=== PATIENT | female | born 1980 | race Caucasian/White ===

== ENCOUNTER 2017-02-18 13:00 | Inpatient (IN) | payer OTHER ==
--- NOTE | ~2017-02-18 | PN ---
Unit #: [id number] #: [id number] Patient: ROBERT HENRIQUEZ [id number] [facility] [address] [place] [address] [id number] MR#: [id number] NAME: ROBERT HENRIQUEZ. ROOM: P257 Age: 36 Sex: F Admission Date: 02/18/2017 : 1980 Attending Physician: Omar Jenkins M.D. Admitting Physician: Omar Jenkins M.D. Primary Care Physician: Primary Care Physician Melita SURESH PROGRESS NOTES DATE 02/21/2017 DISCUSSION Ms. Henriquez is a 36-year-old white female who was seen today and chart was reviewed and case was discussed with the staff. She has been anxious, withdrawn and rather seclusive to herself. Meanwhile, she has been cooperative with treatment recommendations and has been taking medications and tolerating them fairly well with no reported side effects. MENTAL STATUS EXAMINATION Young white female who was casually dressed with fair personal hygiene and appears to be in no acute distress or discomfort. She was awake and alert with intact orientation. Her mood was anxious with congruent affect. She denies any suicidal or homicidal ideation. Her insight and judgement remains slightly impaired. TREATMENT PLAN 1. Will continue on current medications and treatment protocol. Will monitor her response to medications and make further adjustments as needed. 2. Will continue to follow up. Dictated by... Omar Jenkins M.D. IAA/maci TD: 02/21/2017 22:59 JOB #: [id number] Unit #: [id number] #: [id number] Patient: ROBERT HENRIQUEZ PROGRESS NOTES Page 1 of 1 X Omar Jenkins MD PROGRESS NOTE
--- NOTE | ~2017-02-18 | PN ---
Unit #: [id number] #: [id number] Patient: ROBERT HENRIQUEZ [id number] [facility] [address] [place] [address] [id number] I MR#: [id number] NAME: ROBERT HENRIQUEZ. ROOM: P257 Age: 36 Sex: F Admission Date: 02/18/2017 : 1980 Attending Physician: Omar Jenkins M.D. Admitting Physician: Omar Jenkins M.D. Primary Care Physician: Primary Care Physician Melita PRESSLEY NOTES DATE 02/22/2017 DISCUSSION Ms. Henriquez is a 36-year-old white female who was seen today and chart was reviewed and case was discussed with the staff. She has been anxious, withdrawn and rather seclusive to herself. Meanwhile, she has been cooperative with treatment recommendations and has been taking medications and tolerating them fairly well with no reported side effects. MENTAL STATUS EXAMINATION Young white female who was casually dressed with fair personal hygiene and appears to be in no acute distress or discomfort. She was awake and alert on interaction with intact orientation. Her mood was anxious with congruent affect. She denies any suicidal or homicidal ideation. Her insight and judgement remains slightly impaired. TREATMENT PLAN 1. Will continue on current medications and treatment protocol. Will monitor her response to the medications and make further adjustments as needed. 2. Will continue to follow up. Dictated by... Omar Jenkins M.D. IAA/maci TD: 02/22/2017 22:31 JOB #: [id number] Unit #: [id number] #: [id number] Patient: ROBERT HENRIQUEZ DEMETRICE PROGRESS NOTES Page 1 of 1 X Omar Jenkins MD PROGRESS NOTE
--- NOTE | ~2017-02-18 | PN ---
Unit #: [id number] #: [id number] Patient: ROBERT OROZCO [id number] [facility] [address] [place] [address] [id number] I MR#: [id number] NAME: ROBERT OROZCO ROOM: P257 Age: 36 Sex: F Admission Date: 02/18/2017 : 1980 Attending Physician: Omar Jenkins M.D. Admitting Physician: Omar Jenkins M.D. Primary Care Physician: Primary Care Physician Melita SURESH PROGRESS NOTES DATE 02/20/2017 DISCUSSION Ms. Orozco is a 36-year-old white female with mood disorder who was seen today and chart was reviewed. Her case was discussed with the staff. She had a rough day yesterday with increasing anxiety, panic, agitation melt down and had to be given p.r.n. medications to cut down on her anxiety and agitation particularly initially vistaril was given but it is not affective and then p.r.n. Thorazine had been given. She reports having another panic attack this morning and was curled up in her bed and was exhibiting rather bizarre behavior. MENTAL STATUS EXAMINATION Young white female who was casually dressed with fair personal hygiene, appears to be in slight distress or discomfort. She was awake and alert with impaired attention and concentration. Her mood was anxious with congruent affect. She denies any suicidal or homicidal ideation. Her insight and judgement remains slightly impaired. TREATMENT PLAN 1. We will continue her on her current medications and treatment protocol. We will monitor her response to the medication and make further adjustments as needed. 2. We will continue to follow up. Dictated by... Delmis Cota/kate TD: 02/21/2017 01:51 JOB #: [id number] Unit #: [id number] #: [id number] Patient: ROBERT OROZCO DEMETRICE PROGRESS NOTES Page 1 of 1 X Omar Jenkins MD PROGRESS NOTE
--- NOTE | ~2017-02-18 | PA ---
Unit #: [id number] #: [id number] Patient: ROBERT HENRIQUEZ [id number] [place] [address] [id number] I MR#: [id number] NAME: ROBERT HENRIQUEZ. ROOM: P257 Age: 36 Sex: F Admission Date: 02/18/2017 : 1980 Date of Assessment: Attending Physician: Omar Jenkins M.D. Admitting Physician: Omar Jenkins M.D. PSYCHIATRIC ASSESSMENT DATE OF SERVICE 02/18/2017. IDENTIFYING DATA Ms. Henriquez is a 36-year-old white female, who is a resident of [place], [place] and was self-referred to the hospital on a voluntary basis and was accompanied by her sister. CHIEF COMPLAINT "I've been tired and agitated." HISTORY OF PRESENT ILLNESS Ms. Henriquez is a 36-year-old white female, who was brought into the hospital by her sister and the patient reports being tired and agitated and "noises are irritating me badly, I was just a couple of weeks ago due to my bipolar and manic depression and have been having feeling that people are going to come and get me, I do see things that are grieving me signs and sometime they are scaring me. I'm having a hard time making assumptions about things that are not really happening, I have been feeling this way for about 4 to 6 months, went to [facility], had the police come and get me instead of staying and they picked me up and took me to [facility], I did not feel safe there. Yesterday, I said if my family was going to be home, then I would rather go to sleep and just be gone and I used to take medication a year ago and I used to do everything right, and now I don't." The patient became very upset and tearful and stated "I was started to take Depakote a year ago and then started Abilify, trazodone from [facility] and I want to just say that I want to get my medicine and just go and has been about 3 weeks since I slept a lot and I am only sleeping about 1 hour at a time and not doing drugs and alcohol also last year. Slept with my sister Araceli's boyfriend and has been vaginal relationship just found out recently, I thought that she was sleeping with mine, so I slept with hers; however, she would forgive me." The patient's sister stated that "she is staying in a house for the past 3 weeks due to being too scared to be home alone and she is having assumptions that are not really happening and she is misperceiving situation about people and hearing things that are happening, that are not to be happening and she has been paranoid. As such, the patient was seen to be acutely psychotic with paranoia and delusional behavior and was seen to be danger to self and others and recommendation for inpatient level of care for safety and stabilization was made and the patient was transferred to us. Unit #: [id number] #: [id number] Patient: ROBERT HENRIQUEZ SUBSTANCE ABUSE HISTORY The patient reports history of alcohol, cannabis, acid, opioids, methamphetamine, and benzodiazepine abuse in the past, but she reports that she has not done any drugs in months to years. PAST PSYCHIATRIC HISTORY The patient has had history of inpatient psychiatric hospitalization in [facility] and has had outpatient treatment as well, however, review of the medical records indicate currently she is on Depakote and Abilify and trazodone, but does not feel the medications are effectively controlling her symptoms. PAST MEDICAL HISTORY The patient's medical history is significant for degenerative disk disease. ALLERGIES No known medication allergies. PERSONAL AND SOCIAL HISTORY A 36-year-old white female, who reports that she is single and and has been staying with her sister and is unemployed and reports having poor social support system. MENTAL STATUS EXAMINATION Young white female, who was casually dressed with fair personal hygiene, appears to be in no acute distress or discomfort. She was awake and alert on interaction with intact orientation to time, place, and person. Her mood was anxious and depressed with a congruent affect. Her speech was slow and restricted in content. Her thought processes were disorganized with some looseness of associations and flight of ideas. Her insight and judgment remain significantly impaired. DIAGNOSTIC IMPRESSION Psychiatric: Schizoaffective disorder, bipolar type, most recent episode depressed, recurrent, moderate, with psychosis. Medical: Degenerative disk disease. Stressors: Moderate psychosocial stressors. TREATMENT PLAN 1. The patient has presented with a history of mood disorder, and has been decompensating and will need inpatient hospitalization for safety and stabilization. We will start her back on her home medications. We will adjust the medications and monitor response. 2. Supportive therapy was provided to the patient. 3. Safe, structured, and nourishing environment will be provided. ESTIMATED LENGTH OF STAY 5 to 7 days. ABILITY TO HELP SELF Limited. WILLINGNESS TO HELP SELF The patient appears to be willing to help self. STRENGTHS 1. Communicative. 2. Cooperative. Unit #: [id number] #: [id number] Patient: ROEBRT HENRIQUEZ PROBLEMS 1. Chronic dysphoric symptoms. 2. Poor social support system. DISCHARGE CRITERIA This will be contingent upon the patient's ability to show resolution of her depression and anxiety as well as her ability to stay safe to herself, particularly after discharge from the hospital. Dictated by... Delmis Cota/omkar TD: 02/20/2017 01:27 JOB #: [id number] PSYCHIATRIC ASSESSMENT Page 1 of 1 X Omar Jenkins MD X PSYCHIATRIC ASSESSMENT
--- NOTE | ~2017-02-18 | DS ---
Unit #: [id number] #: [id number] Patient: ROBERT OROZCO [id number] [facility] [address] [place] [address] [id number] I MR#: [id number] NAME: ROBERT OROZCO ROOM: P257 Age: 36 Sex: F Admission Date: 02/18/2017 : 1980 Discharge Date: 02/23/2017 Attending Physician: Omar Jenkins M.D. Primary Care Physician: Primary Care Physician No DISCHARGE SUMMARY IDENTIFYING DATA Ms. Hutchins is a 36-year-old white female who is a resident of [place] and was self-referred to the hospital on a voluntary basis. DISCHARGE DIAGNOSES Psychiatric: Opioid dependence. Medical: Degenerative disk disease. Stressors: Moderate psychosocial stressors. HISTORY OF PRESENT ILLNESS Please see initial psychiatric evaluation for details. PAST PSYCHIATRIC HISTORY Please see initial psychiatric evaluation for details. PAST MEDICAL HISTORY Please see initial psychiatric evaluation for details. HOSPITAL COURSE The [facility] and was oriented to the hospital environment. Routine p.r.n. medications were initiated, and she was started back on her home medications and was seen to be anxious, withdrawn, and rather seclusive to herself with persistent psychosis and therefore Depakote was maintained and Seroquel and Remeron were initiated and she was having some increasing anxiety and bizarre behavior and threw herself on the floor and would be crying and exhibiting attention seeking and bizarre behavior and acute psychosis. Thorazine had to be given to cut down on such behavior. Later, Seroquel was titrated to 50 mg in the morning and in the afternoon and 200 mg at bedtime and with that adjustment, the patient was able to calm down and was wanting to go home and was denying any suicidal ideations, intent, or plan and as such, it was decided that she will be discharged home and will continue treatment on an outpatient basis. DISCHARGE MEDICATIONS Depakote 500 mg b.i.d. for bipolar, Remeron 15 mg at bedtime for depression, and Seroquel 50 mg in the morning and afternoon and 200 mg at bedtime. DISCHARGE CONDITION Stable. PROGNOSIS Fair. Unit #: [id number] #: [id number] Patient: ROBERT OROZCO Dictated by... Delmsi Cota/omkar TD: 02/24/2017 22:06 JOB #: [id number] DISCHARGE SUMMARY Page 1 of 1 X Omar Jenkins MD X DISCHARGE SUMMARY
--- NOTE | ~2017-02-18 | PN ---
Unit #: [id number] #: [id number] Patient: ROBERT OROZCO [id number] [facility] [address] [place] [address] [id number] I MR#: [id number] NAME: ROBERT OROZCO. ROOM: P257 Age: 36 Sex: F Admission Date: 02/18/2017 : 1980 Attending Physician: Omar Jenkins M.D. Admitting Physician: Omar Jenkins M.D. Primary Care Physician: Primary Care Physician Melita SURESH PROGRESS NOTES DATE 02/19/2017 DISCUSSION Ms. Orozco is a 36-year-old white female who was seen today and chart was reviewed and case was discussed with the staff. She has been anxious, withdrawn and rather seclusive to herself. Meanwhile, she has been complaining of persistent depression and anxiety. She has been taking medications and tolerating them fairly well with no reported side effects. MENTAL STATUS EXAMINATION Young white female who was casually dressed with fair personal hygiene, appears to be in no acute distress or discomfort. She was awake and alert on interaction with intact orientation. Her mood was anxious with congruent affect. Her speech was slow and goal-directed. She denies any suicidal or homicidal ideations. Her insight and judgement remains slightly impaired. TREATMENT PLAN 1. We will continue her on her current medications and treatment protocol. We will monitor her response to the medication and make further adjustments as needed. 2. We will continue to follow up. Dictated by... Delmis Ctoa/kate TD: 02/20/2017 04:00 JOB #: [id number] Unit #: [id number] #: [id number] Patient: ROBERT OROZCO DEMETRICE PROGRESS NOTES Page 1 of 1 X Omar Jenkins MD PROGRESS NOTE
--- NOTE | ~2017-02-18 | HP ---
Unit #: [id number] #: [id number] Patient: ROBERT OROZCO [id number] [place] [address] [id number] MR#: [id number] NAME: ROBERT OROZCO ROOM: P257 Age: 36 Sex: F Admission Date: 02/18/2017 : 1980 Attending Physician: Omar Jenkins M.D. Admitting Physician: Omar Jenkins M.D. Primary Care Physician: Primary Care Physician No HISTORY AND PHYSICAL HISTORY OF PRESENT ILLNESS Robert is a 36 year old, admitted to [address] [place] [address] with paranoia, auditory and visual hallucinations. PAST MEDICAL HISTORY History of opioid abuse. PAST SURGICAL HISTORY 1. Appendectomy. 2. Right arm. ALLERGIES No known drug allergies. SOCIAL HISTORY She smokes greater than one pack per day, drinks alcohol on occasion, admits to a history of opioid abuse. She continues to abuse. FAMILY HISTORY Medically noncontributory. REVIEW OF SYSTEMS CONSTITUTIONAL: No fever or chills. HEENT: Denies any sore throat, ear pain or runny nose. CARDIOVASCULAR: Denies chest pain, irregular heart rhythm or palpitations. CHEST: Denies shortness of breath or cough. No hemoptysis. GASTROINTESTINAL: Denies nausea, vomiting, diarrhea or chronic constipation. ENDOCRINE: Denies history of increased thirst or urination. No recent significant weight loss or gain. GENITOURINARY: Denies dysuria, frequency, or hematuria. SKIN: Denies any rashes. HEMATOLOGIC: Denies history of increased bleeding or bruising. MUSCULOSKELETAL: Denies any hot, swollen joints. No generalized muscle pain. NEUROLOGIC: Denies problems with vision or speech. No frequent, severe headaches. No numbness, tingling or weakness in any extremities. Denies loss of bladder or bowel control. CURRENT MEDICATIONS 1. Remeron 15 mg q.h.s. 2. Zyprexa 10 mg q.h.s. 3. Milk of magnesia p.r.n. Unit #: [id number] #: [id number] Patient: ROBERT OROZCO 4. Maalox p.r.n. 5. Tylenol p.r.n. 6. Depakote ER 500 mg b.i.d. 7. Nicotine patch 14 mg daily PHYSICAL EXAMINATION GENERAL: Alert, well-nourished, no apparent distress. VITAL SIGNS: Blood pressure 120/84, heart rate 100, respirations 16, temperature 98.6. WEIGHT: 140 pounds. HEIGHT: 5 feet 3 inches. SKIN: Warm and dry without rash or lesion. HEENT: Normocephalic. TMs not viewed. Oral and nasal passages clear. Conjunctivae clear. PERRLA. EOMs intact. NECK: Supple without lymphadenopathy or thyromegaly. HEART: Regular rate and rhythm without murmur. LUNGS: Clear. ABDOMEN: Soft, nontender. : Not done. EXTREMITIES: No evidence of cyanosis, clubbing or edema. Moves all without focal deficit. NEUROLOGICAL: Grossly within normal limits. Cranial Nerves: II: Visual shelton are intact. III, IV AND : Extraocular movements are intact. Pupils are equal, round and reactive to light. V: Facial sensation is grossly normal. VII: Facial movements and expression are normal. VIII: Auditory acuity grossly intact. IX, X: Uvula is midline. Phonation is normal. XI: Patient shrugs shoulders and turns head normally. XII: Tongue protrudes in the midline. Sensory and Motor Function: Sensory and motor sensation is grossly normal. Motor: moves all extremities well. Coordination: Gait is normal. Deep Tendon Reflexes: Intact. IMPRESSION Psychiatric admission. RECOMMENDATIONS Psychiatric, per psychiatrist. MEDICAL I see no contraindications to participating in facility's activities. MEDICAL PROGNOSIS Good. MEDICAL CONDITION Stable. Dictated by... Zoe Pina P.A.-C. for Delmis Yap/rebecca TD: 02/19/2017 12:21 JOB #: [id number] Unit #: [id number] #: [id number] Patient: ROBERT OROZCO HISTORY AND PHYSICAL Page 1 of 1 X Zoe Pina HISTORY AND PHYSICAL
[2017-02-19 09:40] LABS: BASOPHIL# 0.1 X10e3 (0-0.3); BASOPHIL% 0.4 % (0-2.5); EOSINOPHIL# 0.1 X10e3 (0-0.7); EOSINOPHIL% 0.7 % (0.0-7.0); HEMATOCRIT 38.9 % (35.0-45.0); HEMOGLOBIN 13.1 gm/dL (12.0-16.0); LYMPHOCYTE# 3.4 X10e3 (1.0-3.5); LYMPHOCYTE% 25.2 % (17.0-45.0); MEAN CELL VOLUME 101.1 FL (83-96); MEAN CORPUSCULAR HGB CONC 33.6 g/dL (30-36); MONOCYTE# 1.2 X10e3 (0-1.0); MONOCYTE% 8.9 % (3.0-12.0); NEUTROPHIL# 8.8 X10e3 (1.5-7.1); NEUTROPHIL% 64.8 % (40-75); PLATELET COUNT 261 X10e3 (140-420); RED BLOOD COUNT 3.84 X10e (3.90-5.30); RED CELL DISTRIBUTION WIDTH 13.2 % (11.0-15.5); WHITE BLOOD COUNT 13.6 X10e3 (4.0-10.5)
[2017-02-19 09:57] LABS: DIFF IND NO
[2017-02-19 09:57] LABS: URINE APPEARANCE CLEAR; URINE BILIRUBIN NEG (NEG); URINE BLOOD NEG (NEG); URINE COLOR YELLOW; URINE GLUCOSE NEG (NEG); URINE KETONE NEG (NEG); URINE LEUKOCYTE ESTERASE NEG (NEG); URINE NITRATE NEG (NEG); URINE PROTEIN NEG (NEG); URINE SPECIFIC GRAVITY 1.016 (1.003-1.035); URINE UROBILINOGEN 0.2 MG/DL (NEG)
[2017-02-19 10:27] LABS: ALBUMIN SERUM 3.4 g/dL (3.5-5.0); BILIRUBIN,TOTAL 0.8 mg/dL (0.2-2.0); BUN/CREATININE RATIO 12.5; CREATININE SERUM 0.8 mg/dL (0.6-1.4); GLOM FILT RATE Estimated 95.6 mL/min (>60); PROTEIN TOTAL SERUM 6.3 g/dL (6.0-8.3)
[2017-02-19 10:43] LABS: AMPHETAMINE NEG (NEG); BARBITURATES NEG (NEG); BENZODIAZEPINES NEG (NEG); COCAINE NEG (NEG); MARIJUANA NEG (NEG); OPIATES NEG (NEG); TRICYCLIC ANTIDEPRESSANTS POS (NEG); U METHADONE NEG (NEG)
[2017-02-22 09:36] LABS: BASOPHIL# 0.1 X10e3 (0-0.3); BASOPHIL% 0.7 % (0-2.5); EOSINOPHIL# 0.1 X10e3 (0-0.7); HEMATOCRIT 43.4 % (35.0-45.0); HEMOGLOBIN 14.4 gm/dL (12.0-16.0); LYMPHOCYTE# 3.2 X10e3 (1.0-3.5); LYMPHOCYTE% 30.6 % (17.0-45.0); MEAN CELL VOLUME 102.4 FL (83-96); MEAN CORPUSCULAR HEMOGLOBIN 33.9 PG (28-34); MEAN CORPUSCULAR HGB CONC 33.1 g/dL (30-36); MONOCYTE# 0.9 X10e3 (0-1.0); MONOCYTE% 8.8 % (3.0-12.0); NEUTROPHIL# 6.1 X10e3 (1.5-7.1); NEUTROPHIL% 58.9 % (40-75); PLATELET COUNT 300 X10e3 (140-420); RED BLOOD COUNT 4.24 X10e (3.90-5.30); WHITE BLOOD COUNT 10.4 X10e3 (4.0-10.5)
[2017-02-22 09:40] LABS: DIFF IND NO
== END 2017-02-23 14:08 | disposition home or self-care (01) | DRG 897 ==
LOC: P2L 15:57
PROVIDERS: Psychiatry & Neurology Psychiatry
DX: F11.20 Opioid dependence, uncomplicated (principal); F25.0 Schizoaffective disorder, bipolar type; F17.210 Nicotine dependence, cigarettes, uncomplicated
CPT/HCPCS: 80053; 80164; 80307; 81003; 84703; 85025